=== PATIENT | female | born 2005 ===

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

== ENCOUNTER 2024-12-07 23:30 | Observation (INO) | payer OTHER ==
[~2024-12-07] VITALS: Ht 170.2 cm; Wt 90.7 kg
[2024-12-08 00:47] LABS: BASOPHILS ABSOLUTE AUTO 0.05 K/mm3 (0.00-0.23); BASOPHILS PERCENT AUTO 0 % (0-2); EOSINOPHILS ABSOLUTE AUTO 0.10 K/mm3 (0.00-0.68); EOSINOPHILS PERCENT AUTO 1 % (0-6); Hematocrit 40.6 % (33.0-51.0); Hemoglobin 13.4 g/dL (11.5-16.0); IMMATURE GRAN ABSOLUTE AUTO 0.03 K/mm3 (0.00-0.10); IMMATURE GRAN PERCENT AUTO 0 % (0-1); LYMPHOCYTES ABSOLUTE AUTO 4.71 K/mm3 (0.84-5.20); LYMPHOCYTES PERCENT AUTO 40 % (21-46); MONOCYTES ABSOLUTE AUTO 1.05 K/mm3 (0.16-1.47); MONOCYTES PERCENT AUTO 9 % (4-13); Mean Corpuscular HGB Conc 33.0 g/dL (31.5-36.5); Mean Corpuscular Volume 84 fL (80-100); NEUTROPHILS ABSOLUTE AUTO 5.72 K/mm3 (1.96-9.15); NEUTROPHILS PERCENT AUTO 49 % (41-73); NRBC ABSOLUTE 0.00 K/mm3 (0.00-0.02); NRBC Auto 0.0 /100 WBC (0.0-0.2); Platelet Count 295 K/mm3 (150-400); RDW Coefficient Variation 13.2 % (11.7-14.2); RDW Standard Deviation 40.5 fL (35.1-46.3)
[2024-12-08 00:58] LABS: Ethanol (Alcohol), Blood, Med <3 mg/dL; Salicylate <1.7 mg/dL (2.8-20.0)
[2024-12-08 01:02] LABS: Acetaminophen, Random <2.0 ug/mL (10.0-30.0); Alanine Aminotransfer (ALT/SGP 47 U/L (12-78); Albumin, Blood 3.5 g/dL (3.4-5.0); Albumin/Globulin Ratio 0.8 (0.8-1.8); Anion Gap 10 mmol/L (3-11); Aspartate Aminotrans (AST/SGOT 37 U/L (12-37); Bilirubin, Total 0.3 mg/dL (0.1-1.0); Blood Urea Nitrogen 4 mg/dL (8-24); CO2, Blood 24 mmol/L (21-32); Calcium, Blood 8.8 mg/dL (8.5-10.1); Chloride, Blood 108 mmol/L (98-108); Creatinine, Blood 0.58 mg/dL (0.40-1.00); Globulin, Blood 4.4 g/dL (2.2-4.0); Glucose, Blood 93 mg/dL (70-99); Potassium, Blood 3.6 mmol/L (3.5-5.5); Sodium, Blood 138 mmol/L (136-145); Total Protein, Blood 7.9 g/dL (6.4-8.2)
[2024-12-08] MEDS ORDERED: ALTAVERA-28 TA1 EACH PO (08:29)
[2024-12-08] MEDS ORDERED: LITH300C PO (08:29)
[2024-12-08] MEDS ORDERED: PALIPERIDONE ER6 MG PO (08:29)
[2024-12-10] MEDS ORDERED: DiphenhydrAMINE HCl 50 MG/ML 1ML Vial IM SCH (12:40)
[2024-12-10] MEDS ORDERED: Haloperidol Lactate Inj. 5 MG/ML Injection IM PRN (12:45)
[2024-12-10] MEDS ORDERED: LORazepam 2 MG/ML 1ML Injection IM PRN (12:45)
== END 2024-12-10 20:00 ==
LOC: ER 23:30 → EOR 23:31
PROVIDERS: Student in an Organized Health Care Education/Training Program; ADMIT Emergency Medicine
DX: F29 Unspecified psychosis not due to a substance or known physiological condition (principal); R45.850 Homicidal ideations; F20.0 Paranoid schizophrenia; F43.10 Post-traumatic stress disorder, unspecified; Z79.2 Long term (current) use of antibiotics
CPT/HCPCS: 80053; 80320; 84703; 85025; 99285; A9270; G0378; G0480

== ENCOUNTER 2025-02-24 16:45 | Observation (INO) | payer OTHER ==
[~2025-02-24] VITALS: Ht 165.1 cm; Wt 63.5 kg
[~2025-02-24 16:45] MED LIST changes: +ALTAVERA-28 TA1 EACH PO; +LITH300C PO; +PALIPERIDONE ER6 MG PO
[2025-02-24] MEDS ORDERED: Haloperidol Lactate Inj. 5 MG/ML Injection IM PRN (17:50)
[2025-02-24] MEDS ORDERED: LORazepam 2 MG/ML 1ML Injection IM PRN (17:50)
[2025-02-24] MEDS ORDERED: DiphenhydrAMINE HCl 50 MG/ML 1ML Vial IM ONE (17:55)
[2025-02-24 18:24] LABS: BASOPHILS ABSOLUTE AUTO 0.04 K/mm3 (0.00-0.23); BASOPHILS PERCENT AUTO 0 % (0-2); EOSINOPHILS ABSOLUTE AUTO 0.01 K/mm3 (0.00-0.68); EOSINOPHILS PERCENT AUTO 0 % (0-6); Hematocrit 39.2 % (33.0-51.0); Hemoglobin 13.0 g/dL (11.5-16.0); IMMATURE GRAN ABSOLUTE AUTO 0.05 K/mm3 (0.00-0.10); IMMATURE GRAN PERCENT AUTO 1 % (0-1); LYMPHOCYTES ABSOLUTE AUTO 1.66 K/mm3 (0.84-5.20); LYMPHOCYTES PERCENT AUTO 16 % (21-46); MONOCYTES ABSOLUTE AUTO 0.76 K/mm3 (0.16-1.47); MONOCYTES PERCENT AUTO 7 % (4-13); Mean Corpuscular HGB Conc 33.2 g/dL (31.5-36.5); Mean Corpuscular Volume 87 fL (80-100); NEUTROPHILS ABSOLUTE AUTO 8.04 K/mm3 (1.96-9.15); NEUTROPHILS PERCENT AUTO 76 % (41-73); NRBC ABSOLUTE 0.00 K/mm3 (0.00-0.02); NRBC Auto 0.0 /100 WBC (0.0-0.2); Platelet Count 335 K/mm3 (150-400); RDW Coefficient Variation 13.3 % (11.7-14.2); RDW Standard Deviation 42.8 fL (35.1-46.3)
[2025-02-24] MEDS ORDERED: Ziprasidone Mesylate 20 MG / Vial IM ONE (18:40)
[2025-02-24 18:48] LABS: Ethanol (Alcohol), Blood, Med 3 mg/dL; Salicylate <1.7 mg/dL (2.8-20.0)
[2025-02-24 18:58] LABS: Acetaminophen, Random <2.0 ug/mL (10.0-30.0); Alanine Aminotransfer (ALT/SGP 23 U/L (12-78); Albumin, Blood 4.1 g/dL (3.4-5.0); Albumin/Globulin Ratio 0.9 (0.8-1.8); Anion Gap 11 mmol/L (3-11); Aspartate Aminotrans (AST/SGOT 19 U/L (12-37); Bilirubin, Total 0.4 mg/dL (0.1-1.0); Blood Urea Nitrogen 4 mg/dL (8-24); CO2, Blood 23 mmol/L (21-32); Calcium, Blood 9.3 mg/dL (8.5-10.1); Chloride, Blood 106 mmol/L (98-108); Creatinine, Blood 0.55 mg/dL (0.40-1.00); Globulin, Blood 4.4 g/dL (2.2-4.0); Glucose, Blood 104 mg/dL (70-99); Potassium, Blood 3.3 mmol/L (3.5-5.5); Sodium, Blood 137 mmol/L (136-145); Total Protein, Blood 8.5 g/dL (6.4-8.2)
[2025-02-25 11:43] LABS: Source, Urine Clean Catch
[2025-02-25 11:50] LABS: Color, Urine Brown (P-Yellow); Glucose Qualitative, Urine Neg (Neg); Ketones, Urine 4+ (Neg); Leukocyte Esterase, Urine 2+ (Neg); Protein, Urine 3+ (Neg); Specific Gravity, Urine 1.025 (1.003-1.022); Urobilinogen, Urine 1+ (Normal)
[2025-02-25 11:55] LABS: Bilirubin, Urine 1+ (Neg)
[2025-02-25 12:01] LABS: Red Blood Cells, Urine TNTC /hpf (0-2); White Blood Cells, Urine 25-50 /hpf (0-5)
[2025-02-25 12:03] LABS: U Amphetamine Screen Not Detected; U Barbiturate Screen Not Detected; U Benzodiazapine Screen DETECTED; U Buprenorphine Screen Not Detected; U Cannabinoids Screen DETECTED; U Cocaine Screen Not Detected; U Methadone Screen Not Detected; U Methamphetamine Screen Not Detected; U Opiates Screen Not Detected; U Oxycodone Screen Not Detected; U Phencyclidine Screen Not Detected
[2025-02-26] MEDS ORDERED: Haloperidol Lactate Inj. 5 MG/ML Injection IV ONE (07:50)
[2025-02-26] MEDS ORDERED: LORazepam 2 MG/ML 1ML Injection IV ONE (07:50)
[2025-03-02 09:59] LABS: Influenza A, PCR NEGATIVE (NEGATIVE); Influenza B, PCR NEGATIVE (NEGATIVE); Resp Syncytial Virus, PCR NEGATIVE (NEGATIVE); SARS-Cov-2 (COVID-19) PCR, MMC NEGATIVE (NEGATIVE)
== END 2025-03-02 17:40 ==
LOC: ER 16:45 → EOR 16:46
PROVIDERS: Physician Assistant; Psychiatry & Neurology Psychiatry; ADMIT Student in an Organized Health Care Education/Training Program
DX: F20.9 Schizophrenia, unspecified (principal); F43.10 Post-traumatic stress disorder, unspecified; Z79.899 Other long term (current) drug therapy
CPT/HCPCS: 36415; 80053; 80320; 81001; 81025; 85025; 87077; 87086; 87186; 87637; 96372; 96374; 96375; 99285-25; A9270; G0378; G0480; J1200; J1630; J2060; J3486

== ENCOUNTER 2025-04-09 11:59 | Inpatient (IN) | payer OTHER ==
[~2025-04-09] VITALS: Ht 162.6 cm; Wt 74.6 kg
[2025-04-09] MEDS ORDERED: LORazepam 2 MG/ML 1ML Injection IM PRN (12:20)
[2025-04-09] MEDS ORDERED: Haloperidol Lactate Inj. 5 MG/ML Injection IM PRN (12:20)
[2025-04-09] MEDS ORDERED: FLU VACC TS2025-26(6MOS UP)/PF 45 MCG/0.5 ML SYRINGE IM SCH (12:20)
[2025-04-09] MEDS ORDERED: Aluminum Hydroxide 320MG/5ML 473 ML PO PRN (12:25)
[2025-04-09] MEDS ORDERED: Polyethylene Glycol 3350 17 gm PO PRN (12:25)
[2025-04-09] MEDS ORDERED: DiphenhydrAMINE HCl 50 MG/ML 1ML Vial IM PRN (12:25)
[2025-04-09] MEDS ORDERED: Ondansetron 4 MG SoluTab MM PRN (12:30)
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
[2025-04-10] MEDS ORDERED: Multivitamins 1 Tab PO SCH (09:00)
--- NOTE | 2025-04-10 17:37 | NUR ---
SHIFT SUMMARY PT WOKE EASILY FOR BREAKFAST PRESENTING ALERT. UNABLE TO ASSESS PT ORIENTATION SHE REFUSES TO SPEAK OR ANSWER QUESTIONS FROM STAFF. SHE IS NOTED, HOWEVER, TO HAVE NO ISSUES WITH SPEAKING WHEN SHE WANTS SOMETHING. PT APPEARS TO BE ATTEMPTING TO INTIMIDATE STAFF AND HER PEERS BY STANDING AND STARING INTENTLY AT THEM, IF STARING RIGHT THROUGH THE INDIVIDUAL. THERE HAVE BEEN A COUPLE OF COMPLAINTS, AND STATED FEARS, FROM OTHER PATIENTS ABOUT HER BEHAVIORS. PATIENT REFUSES TO RESPOND TO QUESTIONS OF SI/HI/AVH. ANOTHER PT HAD A FAMILY VISIT THIS AFTERNOON, UPON THEIR ATTEMPTED DEPARTURE FROM THE UNIT, THIS PATIENT PRESENTED HERSELF RIGHT IN THE MIDDLE OF THE VISITORS SAYING GOODBYE TO THEIR DAUGHTER. SHE WAS ASKED TO REMOVE HERSELF AND SHE REFUSED, INTENTLY STARING AT THE VISITING MOM. THE FAMILY WAS QUICKLY ESCORTED OUT OF THE UNIT. PT WAS NOT REDIRECTABLE AT THAT TIME. PT HAS BEEN UP IN THE [facility] ALL SHIFT EITHER WALKING THE HALLWAY OR IN THE TV ROOM. SHE HAS RECEIVED Q15 MIN VISUAL SAFETY CHECKS THROUGHOUT THIS SHIFT
--- NOTE | 2025-04-10 20:27 | NUR ---
MEDICAL RECORD REVIEW FOR MITALI REVEALS THE FOLLOWING MENTAL HEALTH VISITS AND ADMISSIONS: 02/24/25 [facility] 03/02/25 TRANSFER TO [facility] 03/22/25 DISCHARGED HOME 12/24/24 [facility] 12/29/24 TRANSFER TO [facility] 12/07/24 [facility] 12/10/24 TRANSFER TO [facility] [place] 12/26/23 [facility] 12/28/23 TRANSFER TO [facility] 12/15/23 [facility] 12/19/23 TRANSFER TO [facility] 09/20/23 [facility] 09/24/23 TRANSFER TO [facility]
--- NOTE | 2025-04-10 20:46 | NUR ---
PT INITIALLY APPEARED TO BE AGREEABLE TO TAKING MEDICATIONS BUT WHEN THIS RN ASK HER TO SWALLOW PILLS WITH WATER SHE REFUSED TO TAKE THEM. WALKED AWAY FROM RN, SLAMMED DOOR INTO ROOM.
--- NOTE | 2025-04-10 22:51 | NUR ---
MID SHIFT SUMMARY: PT CONTINUED TO REFUSE ALL MEDICATIONS THIS EVENING. REFUSED TO INTERACT WITH STAFF AND HAS BEEN SLEEPING SINCE AFTER SNACK TIME. NO ABILITY TO ASSESS THOUGHT PROCESS. CONTINUE 15 MINUTE CHECKS FOR SAFETY.
--- NOTE | 2025-04-10 23:38 | NUR ---
ASSUMPTION OF CARE ASSUMED CARE OF PATIENT FROM MORENITA ESTES AT 2330. SHE IS CURRENTLY RESTING QUIETLY IN HER BED. NO SIGNS OF ACUTE DISTRESS NOTED. SHE REFUSED HER 2100 MEDICATIONS AND DID NOT REQUEST ANY PRN MEDICATIONS.
--- NOTE | 2025-04-11 04:58 | NUR ---
END OF SHIFT SUMMARY PATIENT HAS SLEPT SINCE THIS [place] MAKEUP ARTIST ASSUMED CARE AT 2330. NO PRN MEDICATIONS WERE UTILIZED. PATIENT DOES NOT SEEM TO BE IN ANY ACUTE DISTRESS. SHE CONTINUES TO BE MONITORED EVERY 15 MINUTES FOR WELLNESS AND SAFETY.
--- NOTE | 2025-04-11 17:37 | NUR ---
SHIFT SUMMARY PT WOKE EASILY FOR BREAKFAST PRESENTING ALERT. UNABLE TO ASSESS PT ORIENTATION SHE REFUSES TO SPEAK OR ANSWER QUESTIONS FROM STAFF. SHE CONTINUES TO NOT SPEAK OR RESPOND TO BEING SPOKE TO, HOWEVER SHE WILL SPEAK WHEN SHE NEEDS OR WANTS SOMETHING. PT REFUSED HER MORNING MEDICATIONS, SHE JUST STARES AT YOU AND WALKS AWAY. PT HAS RECEIEVED Q 15 MIN SAFETY CHECKS
[2025-04-11 19:27] VITALS: BP 116/73
--- NOTE | 2025-04-11 20:37 | NUR ---
MEDICATION ADMINISTRATION: PATIENT REFUSES EVENING MEDICATION ADMINISTRATION AT THIS TIME. SHE WAS ASKED X 2, ONE HALF HOUR APART. SHE DOES NOT RESPOND IN ANY WAY. CONTINUING TO CHECK IN WITH PATIENT AND OFFER MEDICATIONS. PATIENT IS CALM AND ACTING IN A SAFE MANNER AT THIS TIME. CONTINUING TO MONITOR.
--- NOTE | 2025-04-11 21:08 | NUR ---
MEDICATION REFUSAL: PATIENT WAS ASKED X4 IF SHE WOULD BE WILLING TO TAKE HER SCHEDULED HS MEDICATIONS. SHE STARED AT RN AND DID NOT RESPOND. SHE WAS ASKED IF SHE COULD PUT UP A FINGER IF IT WAS OKAY TO GIVE HER MEDICATIONS AND SHE STILL STARED, WITH NO RESPONSE. CONTINUING TO MONITOR AND TO OFFER.
--- NOTE | 2025-04-12 04:18 | NUR ---
SHIFT SUMMARY: PATIENT IS A 20 YEAR OLD FEMALE ADMITTED TO [facility] ON 04/09/25 INVOLUNTARILY FOR SCHIZOPHRENIA. SHE HAS BEEN SELECTIVELY MUTE DURING HER STAY. SHE LOOKS UP TO HER NAME, BUT THERE IS NO WAY TO DETERMINE HER A AND O. SHE DID NOT SPEAK THIS SHIFT, AND MADE INAPPROPRIATE EYE CONTACT BY STARING WITHOUT BLINKING AT STAFF MEMBERS FOR LONG PERIODS OF TIME. HER MOOD PRESENTED DISENGAGED AND ANGRY. SHE SHOWED NO S/SX SI, HI OR AVTH THIS SHIFT. PATIENT REFUSED HER EVENING SCHEDULED MEDICATIONS, ALTHOUGH SHE WAS ASKED X4 AT DIFFERENT TIMES. SHE WAS GIVEN EDUCATION REGARDING THE MEDICINE, BUT DID NOT REACT, SO IT IS UNKNOWN WHETHER SHE UNDERSTOOD. SHE DID NOT PARTICIPATE IN SNACK OR WRAP UP GROUP. SHE WENT TO THE DINING AREA, BUT STOOD AND DID NOT GET ANYTHING TO EAT OR DRINK. SHE WENT TO BED AFTER SNACK, AND WAS UP AND DOWN A FEW TIMES THROUGHOUT THE NIGHT, BUT WAS MOSTLY IN BED RESTING WITH EYES CLOSED AND RESPIRATIONS CONFIRMED. CONTINUING TO MONITOR FOR SAFETY WITH Q15 MINUTE CHECKS.
--- NOTE | 2025-04-12 08:22 | NUR ---
NURSE NOTE PT AMBULATING HALLWAYS POST SELF SHOWERING. SHE DID A CLOTHING CHANGE. ATTEMPTED TO ASSESS PT, SHE REFUSES TO ANSWER ANY QUESTIONS OR STOP AMBULATING. WHEN THIS RN ATTEMPTS TO AMBULATE WITH HER PT JUST STARES AT RN AND HAS A CLENCHED JAW AND DOES NOT RESPOND. UNABLE TO FULLY ASSESS PT AT THIS TIME. PT DOES APPEAR TO ENGAGE WITH MALE STAFF AND PEERS.
[2025-04-12 08:53] VITALS: BP 107/76
--- NOTE | 2025-04-12 11:06 | NUR ---
NURSE NOTE SPOKE WITH PT'S MOTHER, WHO IS ALSO HER GUARDIAN ON THE PHONE. MOTHER STATE SHE WAS LAST HOSPITALIZED AT [place] AND SHE LAST HAD A FPC INJECTABLE OF INVEGA 234 MG 02/16/25. BUT SHE HAS NOT HAD ANOTHER ONE SINCE. SHE WAS SUPPOSED TO F/U WITH [facility] BUT MOTHER STATES THE ONLY PLACE SHE HAS BEEN SEEN SINCE BEING AT [place] WAS WHEN SHE WAS TAKEN TO [facility] JUST PRIOR TO ARRIVAL AT [facility].
--- NOTE | 2025-04-12 17:24 | NUR ---
SHIFT SUMMARY PT DID NOT SPEAK TO THIS RN THIS ENTIRE SHIFT, EVEN THOUGH MULTIPLE ATTEMPTS WERE MADE. SHE ONLY HAD 10% OF HER BREAKFAST MEAL, BUT ATE 70% OF HER LUNCH. PARVEEN SAXENA REPORTED TO THIS RN THAT SHE SPOKE BRIEFLY TO HER TO ASK FOR CHIPS, BUT THEN TOOK 2 BITES AND THREW THEM AWAY. PT SPOKE BRIEFLY TO A'S FOR SHOWER SUPPLIES, TWICE THIS SHIFT. SHE AMBULATED THE HALLWAYS FREQUENTLY AND DID NOT ATTEND GROUPS. SHE DID WATCH TV IN THE GROUP ROOM WHEN IT WAS AVAILABLE. THIS RN SPOKE TO MOTHER ON THE TELEPHONE THIS SHIFT, SEE PREVIOUS NOTE.
--- NOTE | 2025-04-12 18:05 | NUR ---
NURSE NOTE PT REFUSED TO EAT HER DINNER MEAL, AND WHEN REDIRECTED TO DINNING ROOM SHE JUST STARES AT RN'S WITH AN ANGRY EXPRESSION ON HER FACE AND CONTINUOUSLY AMBULATES THE HALLWAYS.
--- NOTE | 2025-04-12 20:56 | NUR ---
MEDICATION ADMINISTRATION: PATIENT DID NOT HAVE A BRACELET, AND RN DID NOT WANT TO LOSE THE MOMENT, WHERE SHE WAS AGREEABLE TO TAKE EVENING MEDICATIONS. BRACELET NUMBER WAS TYPED IN MANUALLY. NEW BRACELET MADE AND PLACED IN HER BIN IN MEDICATION ROOM. PATIENT CAME UP TO THE WINDOW HERSELF WITH MINIMAL COACHING AND TOOK HER PRESCRIBED EVENING MEDICATIONS. MEDICATION EDUCATION GIVEN. CONTINUING TO MONITOR FOR EFFECTIVENESS AND FOR PATIENT SAFETY WITH Q15 MINUTE CHECKS.
--- NOTE | 2025-04-13 04:31 | NUR ---
SHIFT SUMMARY: PATIENT IS A 20 YEAR OLD FEMALE ADMITTED 04/09/25 FOR SCHIZOPHRENIA. SHE PRESENTS ADEQUATELY GROOMED. SHE DOES NOT RESPOND TO QUESTIONS WITH WORDS, BUT STARES, SOMETIMES BLINKING, FOR LONG PERIODS OF TIME. SHE PRESENTS BLUNTED AND MOSTLY DISINTERESTED. SHE DID NOT RESPOND TO QUESTIONS WITH WORDS, BUT SHOWED NO S/SX SI, HI OR AVTH AT THE TIME OF ASSESSMENT. SHE DID FOLLOW PEERS INTO DINING AREA FOR SNACK AND WRAP UP GROUP. SHE WAS INVITED TO COME AND GET HER EVENING MEDICATIONS WITH PEER WHEN PEER CAME AFTER SNACK. SHE DID NOT EAT ANYTHING, BUT DID FOLLOW PEER TO MEDICATION ROOM AND TOOK HER EVENING MEDICATIONS WITHOUT ANY ISSUES OR CONCERNS. SHE WAS GIVEN MEDICATION EDUCATION REGARDING THE MEDICINE SHE TOOK. SHE WENT TO HER ROOM AFTER, AND WAS NOTED TO BE IN BED AWAKE FOR A TIME, THEN RESTING QUIETLY WITH EYES CLOSED AND RESPIRATIONS CONFIRMED FOR THE REMAINDER OF THE SHIFT. CONTINUING TO MONITOR FOR SAFETY WITH Q15 MINUTE CHECKS.
[2025-04-13 08:02] VITALS: BP 103/78
--- NOTE | 2025-04-13 11:19 | NUR ---
SHIFT SUMMARY PT CONTINUES TO NOT SPEAK TO THIS RN. SHE CONTINUOUSLY AMBULATES THE HALLWAYS. WHEN THE GROUP ROOM IS OPEN SHE WILL SIT IN IT AND WATCH TV. SHE REFUSED MEDS FOR THIS RN BUT AGREED TO TAKE THEM FOR MORENITA CRAVEN. SHE AT A MINIMAL AMOUNT FOR BREAKFAST.
--- NOTE | 2025-04-13 13:46 | NUR ---
ASSUMED CARE: PT WAS RESTING IN BED, SHE DIDN'T ANSWER ANY QUESTIONS POSED TO HER BY THIS RN.
--- NOTE | 2025-04-13 14:28 | NUR ---
PT ATE ABOUT A FOURTH OF HER BREAKFAST AND REFUSED LUNCH. SHE ATTENDED ONE GROUP BUT STAYED ON THE FRINGE OF THE GROUP.
--- NOTE | 2025-04-13 17:58 | NUR ---
THIS RN ASKED PT IF SHE WOULD ALLOW THE INVEGA INJECTION TO BE GIVEN AND THE PT SHOOK HER HEAD "NO."
--- NOTE | 2025-04-13 18:03 | NUR ---
PT WAS ASKED TO LET STAFF KNOW WHEN SHE NEEDS TO URINATE SO THAT WE CAN GET A URINE SAMPLE. SHE HAS BEEN IN AND OUT OF HER ROOM AND HAS YET TO TALK TO STAFF ABOUT A UA.
[2025-04-13 19:27] VITALS: BP 118/79
[2025-04-14 01:33] VITALS: BP 118/79
--- NOTE | 2025-04-14 04:50 | NUR ---
SHIFT SUMMARY PATIENT UP FOR SNACK, AND VITAL SIGNS WITH MHA'S VERBALIZING PLEASE AND THANK YOU AND MAKING WISHES KNOWN FOR WHAT SHE WANTS FOR A SNACK. WHEN ATTEMPT TO ASK ASSESSMENT QUESTIONS PATIENT NOT ANSWERING QUESTIONS, SHE JUST LOOKS BLANKLY AT NURSE. EXPLAINED THAT WE NEED A URINE SAMPLE AND PATIENT VERBALIZED "NO". MULTIPLE ATTEMPTS TO GIVE PATIENT HS MEDICATIONS PATIENT SHAKING HEAD NO AND THE LAST ATTEMPT PATIENT VERBALIZED "NO THANK YOU" THEN LAYING HER HEAD DOWN ON THE BED, AGAIN INFORMED PATIENT OF THE IMPORTANCE OF TAKING HER MEDICATIONS DOCTOR PRESCRIBED, CONTINUES TO REFUSE. SHAKING HEAD NO TO BEING ASKED IF SI THOUGHTS, NO REACTION TO HI, AND NO REACTION TO BEING ASKED IF HAVING AVTH. PATIENT SLEEPING WELL T/O NIGHT RESP EVEN AND UNLABORED. CONTINUE TO MONITOR Q15MIN
--- NOTE | 2025-04-14 18:48 | NUR ---
PATIENT WAS IN THE DINING ROOM WITH A FOOD TRAY IN FRONT OF HER AT THE TABLE. PATIENT WAS UNPROVOKED WHEN SHE BEGAN PUNCHING HER PLATE, CAUSING FOOD TO GO FLYING AND THE ENTIRE TRAY LANDED ON THE FLOOR. PARVEEN LOUIS WALKED TOWARD HER STATING TO NOT DO THAT. THE PATIENT SAID "DON'T FUCKING TELL ME WHAT TO DO". THE PATIENT EXITED THE DINING ROOM MARBELLA SAINI CLOSELY FOLLOWING BEHIND HER. SHE CAME INTO THE HALLWAY, AND OTHER PATIENTS WERE FEARFULLY EXITING THE DINING ROOM, WALKING TO THE END OF THE HALLWAY FAR FROM THE PATIENT. sECURITY WAS CALLED. tHIS CHIEF FISHERY DIVISION PULLED BENADRYL, HALDOL AND ATIVAN FROM THE PIXIS AND OFFERED HER PO MEDS. SHE STARED,AND REFUSED TO TALK. SHE DID NOT HOLD HER HAND OUT FOR THE MEDICATIONS. SO WE ASKED IF SECURITY WOULD HOLD THE PATEINT FOR AN INJECTION. NURSES PULLED BENEDRYL, HALDOL AND ATIVAN IM, AND THIS NURSE AND ARJUN Tinajero RN EACH PLACED AN INJECTION INTO EACH DELTOID. PATIENT DID NOT ATTEMPT TO PUSH SECURITY AWAY AND APPEARED SAD, BUT STILL NOT SPEAKING TO ANYONE AFTER THE INJECTION. SHE IS NOW PACING THE HALLWAY, HANDS IN POCKETS WITH A MORE RELAXED APPEARING FACE. MARKET MASTER HAS BEEN UPDATED AND WILL MONITOR THE PATIENT. PROVIDER ORDER FOR MEDICTION HOLD IS IN THE SYSTEM.
--- NOTE | 2025-04-14 21:19 | NUR ---
Assumed care at 1845. Patient had just been given Ativan, haldol and diphenhydramine. She paced the halls, then went into the Group room to watch TV. Still not speaking to staff or peers. At 1999, she went to bed after refusing to take HS medications or speak with this nurse. She skipped snack time as well. my understanding is that she has not eaten anything all day. MD informed. Will notify oncoming Charge and primary nurse in AM. Will continue close monitoring every 15 minutes for safety and comfort per unit protocol
--- NOTE | 2025-04-15 04:25 | NUR ---
Patient has slept since 1999 last night and is still asleep. Respirations verified. sleep time thus far has been 8.5 hours. Will continue close monitoring every 15 minutes per protocol for comfort and safety.
--- NOTE | 2025-04-15 11:23 | NUR ---
SHIFT ASSESSMENT: PT LAYING IN BED AT THE START OF THE SHIFT, SHE TURNED HER HEAD WHEN SPOKEN TO BUT MADE NO REPLY. SHE REFUSED MEDS. PT REFUSED BREAKFAST AND THEN ATE 25% OF HER LUNCH. PT AMBULATED TO THE DINING JA, AND BACK TO BED WITH A STEADY GAIT. PT MADE A SWING ON ONE OF THE RN'S AND WAS CAUTIONED THAT "THERE IS NO HITTING ANYONE ON THIS UNIT."
--- NOTE | 2025-04-15 16:57 | NUR ---
1500 PT WAS ASKED IF SHE WOULD TAKE THE INVEGA INJECTION AND SHE REPLIED, "NO THANK YOU." SHE WAS ASKED IF SHE WOULD ANSWER SOME ASSESSMENT QUESTIONS AND SHE SHOOK HER HEAD "NO." PT GOT OUT OF BED AROUND 1600 AND WATCHED PART OF A MOVIE WITH PEERS. SHE SPOKE TO SPIRAL WINDING MACHINE HELPER AND ASKED WHEN SHE COULD GO HOME. SHE WAS ADVISED THAT SHE NEEDED TO BE ACTIVE IN HER TREATMENT, TAKE HER MEDS ETC. SHE REPORTED THAT HER GUARDIAN IS HER MOTHER AND IS NOW WALKING IN THE HALLWAY WAITING FOR THE PHONE TO TALK TO HER MOM.
--- NOTE | 2025-04-15 18:14 | NUR ---
PT ATE 50% OF HER DINNER AND DRANK APPROXIMATELY 8OZ OF CRYSTAL LIGHT. SHE IS CURRENTLY IN THE SHOWER.
--- NOTE | 2025-04-16 06:10 | NUR ---
SHIFT SUMMARY Pt refused assessment. Pt is non-communicative with staff except when she asks for headphones. Pt refused to answer any questions from this RN, looking away when questions were asked. Pt refused HS medications and snack. She came out of her room to request headphones, but otherwise remained in her room the entire shift. [facility] continues to monitor q15m for safety and wellness.
--- NOTE | 2025-04-16 11:19 | NUR ---
UPDATE PT REFUSES TO ANSWER ANY QUESTIONS TO THIS RN OR DR JOY. DENIED SI TO ELAN Huang RN.
--- NOTE | 2025-04-16 16:19 | NUR ---
Patient sitting in the chair outside of the group room. She is drinking coffee. This typewriter operator automatic and an MHA standing near the patient when she filled up her mouth with coffee, till her cheeks puffed out, pucked up her lips and stared at this typewriter operator automatic like she was going to spit it at me. I told her not to spit the coffee, then she sprayed some of what was in her mouth onto the floor. I repeated "do not spit the coffee", she held up her coffee cup to her mouth and spewed the coffee back into the cup. I thanked her for not spitting the rest onto the floor. She went into the group room, and the mess was cleaned up by staff.
--- NOTE | 2025-04-16 16:57 | NUR ---
SHIFT SUMMARY NO ACUTE EVENTS TODAY. PT DENIES SI PER ELAN Huang RN, BUT REFUSES TO ANSWER ANY OTHER QUESTIONS TO THIS RN. PT DID ASK THIS RN PREVIOUS TO THIS NOTE, "CAN I HAVE MORE COFFE" AND "CAN WE WATCH TWILIGHT", BUT OTHERWISE DOES NOT SPEAK OR INTERACT W/ PEERS/STAFF. PT DID NOT EAT MEALS TODAY.
--- NOTE | 2025-04-16 18:15 | NUR ---
UPDATE PT ATE DINNER, WAS TALKING W/ RORY (PATIENT), THEN CAME OUT AND ASKED FOR PEN AND PAPER. PT BEGAN HITTING THE COUNTER W/ FIST AND ASKED PT IF SHE WOULD LIKE TO LISTEN TO MUSIC. PT STATED YES AND IS NOW IN DAY ROOM DANCING WHILE LISTENING TO MUSIC AND WATCHING AVATAR. PT APPEARS TO BE RESPONDING TO INTERNAL STIMULI.
[2025-04-16 19:27] VITALS: BP 121/83
--- NOTE | 2025-04-17 06:14 | NUR ---
SHIFT SUMMARY Pt refused assessment. Pt is non-communicative with staff except when she asks for something. Pt refused to answer any questions from this RN, looking away when questions were asked. Pt refused HS medications and but did have a snack. Pt spent the evening watching TV with peers and did have some conversation with two of the other patients. Pt was in the shower for about an hour. At about 2300, staff gave pt towels and clean clothing. After getting dressed, pt came out into the witt and sat in a chair. Pt returned to her room about midnight and appeared to be asleep by about 0145. Staff continues to monitor q15m for safety and wellness.
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
--- NOTE | 2025-04-17 16:48 | NUR ---
SHIFT SUMMARY PT REFUSES TO ANSWER ANY ASSESSMENT QUESTIONS AND HAS ONLY ASKED "CAN YOU ASK MY MOM TO COME BACK IN" AND "CAN I GET MORE COFFEE" TO THIS RN, OTHERWISE HAS BEEN QUIET AND WATCHING TV OR SITTING OUTSIDE NURSES STATION. PT'S MOM VISITED AND PT ASKED MOM, "CAN I COME HOME WITH YOU?" AND PT'S MOM INFORMED PT ABOUT WANTING PT TO PARTICIPATE AND TAKE MEDICATIONS TO "GET BETTER". NO OTHER ACUTE EVENTS AT THIS TIME. DR JOY AWARE THAT PT REFUSES TO ANSWER SI QUESTIONS AND GIVEN ORDER THAT 1:1 PRECAUTIONS ARE NOT NEEDED AT THIS TIME.
[2025-04-17 19:04] VITALS: BP 124/78
--- NOTE | 2025-04-18 05:48 | NUR ---
SHIFT SUMMARY Pt refused assessment. Pt is non-communicative with staff except when she asks for something. Pt refused to answer any questions from this RN, looking away when questions were asked. Pt refused HS medications. She did come to the dining room for a snack, but only drank her chocolate milk. Pt was in the Group Room, watching TV most of the evening. She retired to her room at about 2200 and remained there for the rest of the shift. Staff continues to monitor q15m for safety and wellness.
--- NOTE | 2025-04-18 17:44 | NUR ---
SHIFT SUMMARY PT CONTINUED WITH LITTLE-NO VERBAL COMMUNICATION WITH PEERS/STAFF THIS SHIFT. INSTEAD, PT STARES INTENSELY OR BRIEFLY SHAKES HEAD NO WHEN ASKED QUESTIONS. SHE DOES NOT ENGAGE IN CONVERSATIONS OTHERWISE. DUE TO THIS BARRIER, IT WAS DIFFICULT TO ASSESS HER MENTAL STATUS. PT DECLINED VITALS CHECK ALONG WITH HER MEDICATIONS AND GROUP PARTICIPATION. PT'S MOTHER CAME IN THIS AFTERNOON FOR A VISIT. NURSING STAFF, SOCIAL WORK, PATIENT, AND HER MOTHER HAD A MEETING DISCUSSING AND ENCOURAGING HER TO START TAKING HER MEDICATIONS AND PARTICIPATE IN THE [facility] TREATMENT PROGRAM. DESPITE EFFORTS, PT CONTINUED TO DECLINE TO TAKE ANY MEDS THIS SHIFT. PT HAS TAKEN x2 SHOWERS TODAY AND BEEN EATING AND DRINKING NORMALLY. SHE IS CURRENTLY SITTING IN DINING ROOM EATING DINNER. DECLINED TO RESPOND WHEN ASKED WHETHER SHE HAD ANY NEEDS/CONCERNS. APPEARS CALM AT THIS TIME.
--- NOTE | 2025-04-19 05:15 | NUR ---
SHIFT SUMMARY Pt refused assessment. Pt is non-communicative with staff except when she asks for something. Pt refused to answer any questions from this RN, looking away when questions were asked. Pt refused HS medications. Pt remained in her room for the entire evening. Staff continues to monitor q15m for safety and wellness.
--- NOTE | 2025-04-19 17:20 | NUR ---
SHIFT SUMMARY PT REFUSED TO SPEAK TO THIS RN THE ENTIRE SHIFT. SHE OFTEN PACED THE HALLWAYS. ONE POINT SHE WAS TEARFUL WHILE PACING AND THEN SHE WOULD BE LAUGHING QUIETLY. PT REFUSED ALL MEDICATIONS. NO PRN MEDS GIVEN. UNABLE TO DO ASSESSMENTS DUE TO PT REFUSING TO PARTICIPATE.
--- NOTE | 2025-04-19 19:08 | NUR ---
PT PACING HALLWAYS. APPEARS TO BE RESPONDING TO INTERNAL STIMULI WITH LAUGHING, SMILING. DOES NOT INTERACT WITH STAFF AND CONTINUES TO REFUSE TO RESPOND TO QUESTIONS OR CONVERSATIONS.
--- NOTE | 2025-04-20 02:21 | NUR ---
Assumed care at 2345. Patient has been sleeping since approximately 0. Chest evenly rising and falling. Will continue closemonitoring every 15 minutes for safety and comfort per unit protocol.
--- NOTE | 2025-04-20 17:31 | NUR ---
Shift Summary Pt spent the majority of the shift pacing the halls. Pt appears to be oriented to herself but difficult to assess. Pt seldom speaks and declines to answer any interview questions. Pt declines medications and declines to participate in most group activities. Her affect is flat and she appears to periodically respond to internal stimuli. She continues to be monitored per unit protocol for safety and wellness.
--- NOTE | 2025-04-21 04:32 | NUR ---
SHIFT SUMMARY:ASSUMED CARE OF PT ST 2330. REPORT FROM FRANKLYN Lino RN. PT HAS BEEN SLEEPING SINCE RETIRING TO BED AROUND 2200. PT PACED THE HALLS A BIT BEFORE BED AND REMAINED NON VERBAL WHEN ASKED QUESTIONS. GAVE A BLANK STARE AND MOVED ON. MONITORED Q 15 MIN FOR SAFETY AND WELLNESS.
--- NOTE | 2025-04-21 17:57 | NUR ---
SHIFT SUMMARY PT WOKE EASILY FOR BREAKFAST PRESENTING ALERT, UNABLE TO ASSESS ORIENTATION DO TO PT'S REFUSAL TO VERBALLY RESPOND. SHE CAN SPEAK CLEARLY WHEN SHE CHOOSES TO DO SO AND APPROPRIATLY WILL ASK FOR THINGS THAT SHE WANTS/NEEDS. JUST BEFORE LUNCH, PT ASKED HEMANTH Sin FOR A CUP OF COFFEE. HEMANTH GOT HER A CUP, PT WAS STANDING RIGHT UP WITHIN 10 INCHES OR LESS INCHES FROM HEMANTH'S FACE. HEMANTH ASKED PT TO STEP BACK, THAT PT WAS IN HER PERSONAL SPACE. PT STEPPED BACK, ASKED FOR CREAM AND SUGAR, HEMANTH ASKED HOW MANY AND PT REACHED OUT AND SLAPPED THE COFFEE OUT OF HEMANTH'S HAND. PT REFUSED MEDICATION THIS MORNING. SHE RECEIVED Q15 MIN VISUAL SAFETY CHECKS THIS SHIFT
--- NOTE | 2025-04-21 23:08 | NUR ---
MID SHIFT SUMMARY: PT SPENT ENTIRE EVENING IN BED. REFUSED TO INTERACT WITH STAFF. FREQUENT CHECKS PERFORMED (15 MIN) TO ENSURE SAFETY. PATIENT CURRENTLY IN BED SLEEPING, DEEP EVEN BREATHS NOTED BY MHA.
--- NOTE | 2025-04-22 04:42 | NUR ---
SHIFT SUMMARY: ASSUMED CARE OF PT AT 2330. REPORT TAKEN FROM FRANKLYN XAVIER. PT HAS BEEEN SLEEPING SINCE THE BEGINNING OF SHIFT AND HAS SLEPT WELL. STILL ASLEEP AT THIS TIME. MONITORED Q 15 MINS FOR WELLNESS AND SAFETY. WILL CONTINUE TO MONITOR.
--- NOTE | 2025-04-22 13:13 | NUR ---
DISCHARGE SUMMARY PT DC FROM [facility] AT 1310, SHE LEFT IN OUR SAFETY SCRUBS SHE REFUSED TO CHANGE INTO HER OWN CLOTHES. PT'S MOM SIGNED DC PAPERS. MOM STATED SHE WOULD RETURN THE GREEN SCRUBS. MOM STATED UNDERSTANDING OF THE DC INSTRUCTIONS
== END 2025-04-22 13:10 | disposition home or self-care (01) | DRG 885 ==
LOC: BHU 11:59
PROVIDERS: ADMIT Psychiatry & Neurology Psychiatry
DX: F20.2 Catatonic schizophrenia (principal); F43.10 Post-traumatic stress disorder, unspecified; Z79.899 Other long term (current) drug therapy; Z79.1 Long term (current) use of non-steroidal anti-inflammatories (NSAID)
CPT/HCPCS: 96372; A9270